=== PATIENT | male | born 1960 | race African-American/Black ===

== ENCOUNTER 2024-06-29 12:17 | Inpatient (IN) | payer MEDICARE ==
[~2024-06-29] VITALS: Ht 185.4 cm; Wt 106.6 kg
[2024-06-29 14:15] LABS: BASOPHILS # (AUTO) 0.1 K/uL (0.0-0.2); BASOPHILS % (AUTO) 1.2 % (0.0-2.0); EOSINOPHILS # (AUTO) 0.2 K/uL (0.0-0.7); EOSINOPHILS % (AUTO) 2.8 % (0.0-6.0); HEMATOCRIT 48 % (39-51); HEMOGLOBIN 15.4 g/dL (13.5-17.5); LYMPHOCYTES # (AUTO) 1.5 K/uL (0.8-4.8); LYMPHOCYTES % (AUTO) 20.7 % (20.0-44.0); MEAN CORPUSCULAR HEMOGLOBIN 31 PG (26.0-33.0); MEAN CORPUSCULAR HGB CONC 32 g/dl (31.0-36.0); MEAN CORPUSCULAR VOLUME 97 fL (80-96); MONOCYTES # (AUTO) 0.7 K/uL (0.1-1.30); NEUTROPHILS # (AUTO) 4.9 K/uL (1.8-8.9); NEUTROPHILS % (AUTO) 65.3 % (43.0-81.0); PLATELET COUNT (AUTO) 232 K/uL (150-450); RED BLOOD CELL COUNT(AUTO) 4.93 MIL/uL (4.5-6.0); RED CELL DISTRIBUTION WIDTH 13.6 % (11.5-15.0); WHITE BLOOD COUNT (AUTO) 7.5 K/uL (4.3-11.0)
[2024-06-29 14:23] LABS: APPEARANCE,URINE CLEAR (CLEAR); BILIRUBIN,URINE NEGATIVE (NEGATIVE); BLOOD, URINE NEGATIVE Ery/uL (NEGATIVE); COLOR,URINE YELLOW (YELLOW); KETONES,URINE NEGATIVE (NEGATIVE); LEUKOCYTE ESTERASE ,URINE NEGATIVE (NEGATIVE); NITRITE, URINE NEGATIVE (NEGATIVE); PH,URINE 6.5 (5.0-8.0); PROTEIN,URINE NEGATIVE (NEGATIVE); UGLUCOSE NEGATIVE (NEGATIVE); UROBILINOGEN,URINE 0.2 EU/dL (0.2)
[2024-06-29 14:27] LABS: CALCIUM, SERUM 9.3 mg/dL (8.5-10.1); CARBON DIOXIDE 30 mmol/L (21-32); CHLORIDE 101 mmol/L (98-107); CREATININE 1.5 mg/dL (0.6-1.3); GLUCOSE 96 mg/dL (74-106); POTASSIUM 4.4 mmol/L (3.5-5.1); SODIUM SERUM 138 mmol/L (136-145); UREA NITROGEN, BLOOD 21 mg/dL (7-18)
[2024-06-29 14:33] LABS: ALANINE AMINOTRANSFERASE 63 U/L (12-78); ALBUMIN 4.1 g/dL (3.4-5.0); ALKALINE PHOSPHATASE 111 U/L (46-116); ASPARTATE AMINOTRANSFERASE 32 U/L (15-37); BILIRUBIN,DIRECT 0.1 mg/dL (0.0-0.2); BILIRUBIN,TOTAL 0.7 mg/dL (0.2-1.0); TOTAL PROTEIN, SERUM 8.3 g/dL (6.4-8.2)
[2024-06-29 14:35] LABS: ACETAMINOPHEN 0 ug/ml (10-30); ALCOHOL, BLOOD < 3 mg/dL (0-10); SALICYLATE 0.9 mg/dL (2.8-20.0)
[2024-06-29 14:49] LABS: AMPHETAMINE, URINE NEGATIVE (NEGATIVE); BARBITURATE, URINE NEGATIVE (NEGATIVE); COCCAINE, URINE NEGATIVE (NEGATIVE); OPIATE, URINE NEGATIVE (NEGATIVE); PHENCYCLIDINE SCREEN,URINE NEGATIVE (NEGATIVE)
[2024-06-29 14:50] LABS: BENZODIAZEPINE, URINE POSITIVE (NEGATIVE); CANNABINOID, URINE POSITIVE (NEGATIVE)
[2024-06-30] MEDS ORDERED: ARIP2TAB3 PO (07:31)
[2024-06-30] MEDS ORDERED: ATOR10TA PO (07:31)
[2024-06-30] MEDS ORDERED: BUPR-96 PO (07:31)
[2024-06-30] MEDS ORDERED: ASPI-1169 PO (07:31)
[2024-06-30 08:00] VITALS: BP 131/83; TEMP 98.6
[2024-06-30] MEDS ORDERED: ACETAMINOPHEN 325 MG TABLET PO PRN (08:30)
[2024-06-30] MEDS ORDERED: TEMAZEPAM 7.5 MG CAPSULE PO PRN (08:30)
[2024-06-30] MEDS ORDERED: clonazePAM 0.5 MG TABLET PO PRN (08:30)
[2024-06-30 08:55] VITALS: BP 131/83; TEMP 98.6; O2SAT 98
[2024-06-30] MEDS: BUPROPION XL 150 MG TAB.ER.24 PO SCH (12:12)
[2024-06-30] MEDS: ARIPIPRAZOLE 5 MG TABLET PO SCH (12:12)
[2024-06-30 16:00] VITALS: BP 90/60; TEMP 98; O2SAT 99
[2024-06-30 20:30] VITALS: BP 116/76; TEMP 98; O2SAT 99
[2024-06-30] MEDS: TEMAZEPAM 7.5 MG CAPSULE PO PRN (21:19)
[2024-07-01 06:55] LABS: BASOPHILS % (AUTO) 0.9 % (0.0-2.0); EOSINOPHILS # (AUTO) 0.2 K/uL (0.0-0.7); EOSINOPHILS % (AUTO) 6.5 % (0.0-6.0); HEMATOCRIT 43 % (39-51); HEMOGLOBIN 14.2 g/dL (13.5-17.5); LYMPHOCYTES # (AUTO) 1.4 K/uL (0.8-4.8); LYMPHOCYTES % (AUTO) 37.5 % (20.0-44.0); MEAN CORPUSCULAR HEMOGLOBIN 31 PG (26.0-33.0); MEAN CORPUSCULAR HGB CONC 33 g/dl (31.0-36.0); MEAN CORPUSCULAR VOLUME 96 fL (80-96); MONOCYTES # (AUTO) 0.4 K/uL (0.1-1.30); MONOCYTES % (AUTO) 11.2 % (2.0-12.0); NEUTROPHILS # (AUTO) 1.7 K/uL (1.8-8.9); NEUTROPHILS % (AUTO) 43.9 % (43.0-81.0); PLATELET COUNT (AUTO) 213 K/uL (150-450); RED CELL DISTRIBUTION WIDTH 13.4 % (11.5-15.0); WHITE BLOOD COUNT (AUTO) 3.8 K/uL (4.3-11.0)
[2024-07-01 07:22] LABS: ALBUMIN 3.3 g/dL (3.4-5.0); BILIRUBIN,TOTAL 1.1 mg/dL (0.2-1.0); CALCIUM, SERUM 8.6 mg/dL (8.5-10.1); CREATININE 1.1 mg/dL (0.6-1.3); MAGNESIUM 2.2 mg/dL (1.8-2.4); PHOSPHORUS 4.1 mg/dL (2.5-4.9); POTASSIUM 4.1 mmol/L (3.5-5.1)
[2024-07-01 07:24] LABS: THYROID STIMULATING HORMONE 2.77 uIU/mL (0.358-3.74)
[2024-07-01 08:00] VITALS: BP 127/88; TEMP 98; O2SAT 97
[2024-07-01] MEDS: ASPIRIN 81 MG TAB.CHEW PO SCH (09:25)
[2024-07-01 16:00] VITALS: BP 133/80; TEMP 97.9; O2SAT 96
[2024-07-01 20:12] VITALS: BP 118/79; TEMP 97.9; O2SAT 96
[2024-07-01] MEDS: MAG HYDROX/AL HYDROX/SIMETH 30 ML UDC PO PRN (21:17)
[2024-07-02 08:00] VITALS: BP 125/76; TEMP 98; O2SAT 98
[2024-07-02 16:07] VITALS: BP 134/75; TEMP 97.5; O2SAT 98
[2024-07-02 20:08] VITALS: BP 121/72; TEMP 98; O2SAT 100
[2024-07-02 20:38] VITALS: BP 121/72; TEMP 98.6; O2SAT 98
[2024-07-03] MEDS: clonazePAM 0.5 MG TABLET PO PRN (04:50)
[2024-07-03 08:00] VITALS: BP 114/72; TEMP 98.2; O2SAT 97
[2024-07-03 16:00] VITALS: BP 117/80; TEMP 98.8; O2SAT 98
[2024-07-03 20:00] VITALS: BP 105/66; TEMP 98.5; O2SAT 100
[2024-07-04 08:00] VITALS: BP 127/79; TEMP 97.9; O2SAT 96
[2024-07-04 16:00] VITALS: BP 115/74; TEMP 98.4; O2SAT 97
[2024-07-04] MEDS: ARIPIPRAZOLE 5 MG TABLET PO SCH (19:26)
[2024-07-04 20:00] VITALS: BP 127/82; TEMP 98; O2SAT 96
[2024-07-05 08:00] VITALS: BP 124/86; TEMP 98.4; O2SAT 98
[2024-07-05 16:00] VITALS: BP 101/77; TEMP 98.2; O2SAT 97
[2024-07-05 20:00] VITALS: BP 129/78; TEMP 98; O2SAT 99
[2024-07-06 08:00] VITALS: BP 126/93; TEMP 97.7; O2SAT 99
[2024-07-06 16:00] VITALS: BP 114/75; TEMP 98.2; O2SAT 97
[2024-07-06 21:03] VITALS: BP 120/65; TEMP 98.2; O2SAT 97
[2024-07-07 08:00] VITALS: BP 128/76; TEMP 98.6; O2SAT 97
[2024-07-07 16:00] VITALS: BP 135/90; TEMP 98; O2SAT 98
[2024-07-07 20:34] VITALS: BP 124/84; TEMP 98.4; O2SAT 99
[2024-07-08 08:00] VITALS: BP 126/87; TEMP 98.6; O2SAT 98
[2024-07-08 16:00] VITALS: BP 124/77; TEMP 98.8; O2SAT 98
[2024-07-08] MEDS: MAGNESIUM HYDROXIDE 30 ML UDC PO PRN (17:44)
[2024-07-08 20:35] VITALS: BP 115/80; TEMP 98.4; O2SAT 96
[2024-07-09 08:00] VITALS: BP 118/88; TEMP 98.1; O2SAT 97
[2024-07-09 16:00] VITALS: BP 114/82; TEMP 97.9; O2SAT 98
[2024-07-10 08:00] VITALS: BP 122/86; TEMP 97.8; O2SAT 98
[2024-07-10 16:00] VITALS: BP 114/76; TEMP 98; O2SAT 100
[2024-07-10 20:00] VITALS: BP 110/75; TEMP 97.8; O2SAT 98
[2024-07-11 07:03] LABS: BASOPHILS # (AUTO) 0.1 K/uL (0.0-0.2); BASOPHILS % (AUTO) 1.9 % (0.0-2.0); EOSINOPHILS # (AUTO) 0.2 K/uL (0.0-0.7); EOSINOPHILS % (AUTO) 4.9 % (0.0-6.0); HEMATOCRIT 46 % (39-51); HEMOGLOBIN 15.1 g/dL (13.5-17.5); LYMPHOCYTES # (AUTO) 1.5 K/uL (0.8-4.8); LYMPHOCYTES % (AUTO) 31.7 % (20.0-44.0); MEAN CORPUSCULAR HEMOGLOBIN 31 PG (26.0-33.0); MEAN CORPUSCULAR HGB CONC 33 g/dl (31.0-36.0); MEAN CORPUSCULAR VOLUME 95 fL (80-96); MONOCYTES # (AUTO) 0.5 K/uL (0.1-1.30); MONOCYTES % (AUTO) 10.1 % (2.0-12.0); NEUTROPHILS # (AUTO) 2.4 K/uL (1.8-8.9); NEUTROPHILS % (AUTO) 51.4 % (43.0-81.0); PLATELET COUNT (AUTO) 277 K/uL (150-450); RED CELL DISTRIBUTION WIDTH 12.9 % (11.5-15.0); WHITE BLOOD COUNT (AUTO) 4.8 K/uL (4.3-11.0)
[2024-07-11 07:31] LABS: ALBUMIN 3.5 g/dL (3.4-5.0); CALCIUM, SERUM 8.9 mg/dL (8.5-10.1); CREATININE 1.1 mg/dL (0.6-1.3); MAGNESIUM 2.2 mg/dL (1.8-2.4); PHOSPHORUS 4.4 mg/dL (2.5-4.9); POTASSIUM 4.4 mmol/L (3.5-5.1); TOTAL PROTEIN, SERUM 7.5 g/dL (6.4-8.2)
[2024-07-11 08:00] VITALS: BP 131/74; TEMP 97.8; O2SAT 99
[2024-07-11 16:00] VITALS: BP 120/78; TEMP 98.6; O2SAT 98
[2024-07-11 20:00] VITALS: BP 111/79; TEMP 98; O2SAT 99
[2024-07-12 08:00] VITALS: BP 124/70; TEMP 97.7; O2SAT 96
== END 2024-07-12 13:40 | DRG 885 ==
LOC: EDUNIT# 12:17 → ER 12:17 → GPS 06-30 05:46
PROVIDERS: ADMIT Nurse Practitioner Psychiatric/Mental Health; ATTEND Internal Medicine
DX: F33.3 Major depressive disorder, recurrent, severe with psychotic symptoms (principal); N17.0 Acute kidney failure with tubular necrosis; Z59.00 Homelessness unspecified; R45.851 Suicidal ideations; F41.9 Anxiety disorder, unspecified; F10.20 Alcohol dependence, uncomplicated; I10 Essential (primary) hypertension; M89.8X9 Other specified disorders of bone, unspecified site; E78.00 Pure hypercholesterolemia, unspecified; E86.0 Dehydration; R79.89 Other specified abnormal findings of blood chemistry; F29 Unspecified psychosis not due to a substance or known physiological condition; Z79.899 Other long term (current) drug therapy; Y90.0 Blood alcohol level of less than 20 mg/100 ml; Z20.822 Contact with and (suspected) exposure to COVID-19; E86.9 Volume depletion, unspecified
CPT/HCPCS: 36415; 80048-TC; 80053-TC; 80061-TC; 80076-TC; 83735-TC; 84100-TC; 84443-TC; 85025-TC; G0480